=== PATIENT | female | born 1995 | race Two or more races ===

== ENCOUNTER 2021-01-28 22:15 | Emergency (ER) | payer OTHER ==
[~2021-01-28] VITALS: Ht 167.6 cm; Wt 57.2 kg
[2021-01-28] MEDS ORDERED: PANADOL (22:26)
[2021-01-29] MEDS ORDERED: KETO10TA2 PO (01:49)
== END 2021-01-29 02:04 ==
LOC: ER 22:15
DX: N39.8 Other specified disorders of urinary system (principal)